=== PATIENT | female | born 1980 | race Caucasian/White ===

== ENCOUNTER → 2018-11-21 16:50 | Observation (INO) ==
--- NOTE | 2018-11-21 16:30 | OB/GYN Progress Note ---
Date of Encounter: 11/21/18 Time of Encounter: 16:28 - Assessment and Plan (1) 21 weeks gestation of Status: Acute Not ruptured Urine NSF Discharge home with labor precautions Follow up in office with routine care and PRN (2) Vaginal discharge during in second trimester Status: Acute Subjective - Subjective Principal diagnosis: Leaking of fluid Interval history: Ms Chandler is a at 21 weeks and 3 days that presents to triage with c/o a pop that she felt this morning, followed by a gush of fluid at roughly 0930 am. She is seen by the midwives. She states it smelled of amniotic fluid and she was in [place]. She felt it was best to return to where she received care and she and her drove to the hospital this afternoon. This is complicated by 3 previous miscarriages, advanced maternal age, and a circumvallate placenta. Antepartum ROS: loss of fluid, movement normal, no vaginal bleeding, no contractions Objective - Vital Signs Vital Signs: Intake and Output 11/21/18 11/21/18 11/21/18 07:59 15:59 23:59 Other: Weight 83.4 kg Patient Weight 11/21/18 23:59 Weight 83.4 kg - Exam FHR: auscultation normal (FHTs 140's) Auscultation: bilateral: normal Abdomen: Present: normal appearance, soft, gravid Uterus: Present: normal. Absent: firm, tenderness Comments: SSE- no pooling, nitrazine negative, thin julio/white discharge present (intercourse last night). Cervix appears visually closed Fern negative
[2018-11-21 16:37] LABS: Bilirubin,Urine Negative (Negative); Blood,Urine Negative (Negative); Clarity,Urine Cloudy (Clear); Color,Urine Yellow (Yellow); Glucose,Urine (UA) Normal (Normal); Ketones,Urine Negative (Negative); Leukocyte Esterase,Urine Negative (Negative); Nitrite,Urine Negative (Negative); PH,Urine 7.5 pH Units (5.0-8.0); Protein,Urine Negative (Neg-Trace); Specific Gravity,Urine 1.015 (1.010-1.025); Urobilinogen,Urine Normal (Normal)
[2018-11-21 16:41] LABS: Bacteria,Urine None Seen per hpf (None-Few); Hyaline Casts,Urine None Seen per lpf (None-Few); Squamous Epithelial Cell,Urine Moderate per lpf (None-Few); WBC,Urine 0-3 per hpf (0-3)
[2018-11-21 16:45] LABS: Amphetamine Screen,Urine Negative ng/mL (Cutoff=1000); Barbiturate Screen,Urine Negative ng/mL (Cutoff=200); Benzodiazepines Screen,Urine Negative ng/mL (Cutoff=200); Cannabinoid Screen,Urine Negative ng/mL (Cutoff = 50); Cocaine Screen,Urine Negative ng/mL (Cutoff= 300); Opiate Screen,Urine Negative ng/mL (Cutoff=300); Phencyclidine Screen,Urine Negative ng/mL (Cutoff=25)
== END | disposition home or self-care (01) ==
LOC: 1NENULAB
PROVIDERS: ADMIT Advanced Practice Midwife; ATTEND Advanced Practice Midwife

== ENCOUNTER 2019-03-24 08:02 | Inpatient (IN) ==
[2019-03-24] MEDS ORDERED: Lidocaine 1% 20 ML MDV INFILT PRN (08:55)
[2019-03-24] MEDS ORDERED: Famotidine 20 MG/2 ML VIAL IVP PRN (08:55)
[2019-03-24] MEDS ORDERED: Metoclopramide 10 MG/2 ML VIAL IVP PRN (08:55)
[2019-03-24] MEDS ORDERED: Naloxone 0.4 MG/ML INJ IVP PRN (08:55)
[2019-03-24] MEDS ORDERED: miSOPROStoL 25 MCG TABLET PO PRN (08:55)
[2019-03-24] MEDS ORDERED: *HR* FentaNYL (PF) 100 MCG/2 ML VIAL IVP PRN (08:55)
[2019-03-24] MEDS ORDERED: Ondansetron 4 MG/2 ML VIAL IVP PRN (08:55)
[2019-03-24] MEDS ORDERED: Penicillin G Potassium 5,000,000 UNIT in 0.9 % Sodium Chloride Mini Bag 100 ML IVPB ONE (08:55)
[2019-03-24] MEDS ORDERED: Oxytocin 20 units/ LR 1000 mL 20 UNIT/1,000 ML BAG IVC SCH ×2 (09:00→20:03)
[2019-03-24] MEDS: Ringers Solution, Lactated 1,000 ML IVC SCH (09:27)
[2019-03-24 09:30] LABS: Basophils % 0.2 %; Eosinophils % 0.7 %; Hematocrit 37.8 % (35.3-44.9); Hemoglobin 13.2 g/dL (11.5-15.4); Immature Granulocytes % 0.7 % (0-4); Lymphocytes # 1.5 K/mcL (0.6-4.6); Lymphocytes % 25.5 %; Mean Corpuscular HGB Conc 34.9 g/dL (31.6-35.5); Mean Corpuscular Hemoglobin 32.7 pg (28.0-33.3); Mean Corpuscular Volume 93.6 fL (83.0-100.0); Mean Platelet Volume 9.6 fL (9.4-12.4); Monocytes # 0.5 K/mcL (0.0-1.3); Monocytes % 8.6 %; Neutrophils # 3.7 K/mcL (1.6-8.9); Platelet Count 204 K/mcL (140-400); Red Blood Count 4.04 M/mcL (3.82-4.97); Red Cell Distribution Width 13.9 % (11.5-14.5); Segmented Neutrophils % 64.3 %; White Blood Count 5.7 K/mcL (4.3-11.1)
[2019-03-24 09:37] LABS: Amphetamine Screen,Urine Negative ng/mL (Cutoff=1000); Barbiturate Screen,Urine Negative ng/mL (Cutoff=200); Benzodiazepines Screen,Urine Negative ng/mL (Cutoff=200); Cannabinoid Screen,Urine Negative ng/mL (Cutoff = 50); Cocaine Screen,Urine Negative ng/mL (Cutoff= 300); Opiate Screen,Urine Negative ng/mL (Cutoff=300); Phencyclidine Screen,Urine Negative ng/mL (Cutoff=25)
[2019-03-24] MEDS ORDERED: EPHEDrine 50 MG/ML VIAL IVP PRN (10:57)
[2019-03-24] MEDS ORDERED: Epidural Premix (fent/bupiv) 110 ML EP SCH (11:00)
[2019-03-24] MEDS ORDERED: *HR* FentaNYL (PF) 100 MCG/2 ML VIAL ONE (13:38)
[2019-03-24] MEDS ORDERED: Bupivacaine-MPF 0.25% 10 ML VIAL ONE (13:38)
[2019-03-24] MEDS ORDERED: Benzocaine/Menthol 56 GM AEROSOL SPRAY TP PRN (20:03)
[2019-03-24] MEDS ORDERED: Measles/Mumps/Rubella Vacc 0.5 ML VIAL SQ PRN (20:03)
[2019-03-24] MEDS ORDERED: Acetaminophen 325 MG TABLET PO PRN (20:03)
[2019-03-24] MEDS: Ibuprofen 600 MG TABLET PO PRN (22:26)
[2019-03-25] MEDS: Penicillin G Potassium 2,500,000 UNIT in 0.9 % Sodium Chloride 100 ML IVPB SCH ×2 (00:34→00:35)
[2019-03-25] MEDS: Ringers Solution, Lactated 1,000 ML IVC SCH (00:35)
[2019-03-25 07:45] VITALS: BP 97/65
[2019-03-25] MEDS ORDERED: Prenatal Vit/FA 1 EACH TABLET PO SCH (09:00)
[2019-03-25] MEDS: Ibuprofen 600 MG TABLET PO PRN (09:26)
== END 2019-03-25 18:34 | disposition home or self-care (01) | DRG 806 ==
LOC: 1NENULAB 08:02 → 1NENUOBS 20:28
PROVIDERS: ADMIT Registered Nurse; ATTEND Registered Nurse